=== PATIENT | male | born 1980 | race Caucasian/White ===

== ENCOUNTER 2020-08-27 06:40 | Outpatient (REF) | payer MEDICAID, SELFPAY | END 2020-08-27 06:41 | disposition home or self-care (01) | LOC: HO.LAB 06:40 | PROVIDERS: Visit Provider Internal Medicine | DX: Z20.828 Contact with and (suspected) exposure to other viral communicable diseases (principal) | CPT/HCPCS: 87635 ==

== ENCOUNTER 2020-10-29 10:10 | Outpatient (REF) | payer MEDICAID, SELFPAY | END 2020-10-29 10:11 | disposition home or self-care (01) | LOC: HO.LAB 10:10 | PROVIDERS: Visit Provider Internal Medicine | DX: Z20.828 Contact with and (suspected) exposure to other viral communicable diseases (principal) | CPT/HCPCS: C9803; U0003 ==

== ENCOUNTER 2021-07-23 11:06 | Outpatient (REF) | payer MEDICAID, SELFPAY ==
[2021-07-23 13:32] LABS: COVID-19 Test Negative (Negative)
== END 2021-07-23 11:07 | disposition home or self-care (01) ==
LOC: HO.LAB 11:06
PROVIDERS: Visit Provider Internal Medicine
DX: Z20.822 Contact with and (suspected) exposure to COVID-19 (principal)
CPT/HCPCS: 36415; 87635; C9803

== ENCOUNTER 2022-09-09 08:39 | Outpatient (REF) | payer MEDICAID, SELFPAY ==
[2022-09-09 09:19] LABS: COVID-19 Test Negative (Negative); IDNOW Serial# 16C4AD1C
== END 2022-09-09 08:40 | disposition home or self-care (01) ==
LOC: HO.LAB 08:39
PROVIDERS: Visit Provider Internal Medicine
DX: Z20.822 Contact with and (suspected) exposure to COVID-19 (principal)
CPT/HCPCS: 87635; C9803

== ENCOUNTER 2024-06-06 00:22 | Emergency (ER) | payer OTHER, SELFPAY ==
[2024-06-06 00:30] VITALS: BP 102/72; PULSE 69; RESP 18; TEMP 36.3; BMI 24.0
--- NOTE | 2024-06-06 01:09 | ED.BACK ---
HPI - Back Pain/Injury General Chief Complaint: Back Pain/Injury Stated Complaint: Back pain x 1 week/Work related Time Seen by Provider: 06/06/24 00:44 Source: patient Mode of arrival: ambulatory Limitations: no limitations History of Present Illness ED Provider: Dr. Zhen Madison HPI Narrative: 44-year-old male with history of sciatica who presents emergency department for evaluation of lower back pain with pain radiating down his right leg. 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 He states that while he was driving he developed pain in his lower back. He states that since that time he has had increased pain with pain radiating down his right leg. He states the pain radiates to his right buttocks and down the lateral and anterior aspect of his right thigh and stops at the knee. He states the pain is 9 out of 10 with movement and is 2 to 3/10 if he stays still and rests. The patient denied any numbness or weakness of the extremities. He denied any loss of bowel or bladder control. He has not had any systemic symptoms such as fever, chills, fatigue. Related Data Previous Rx's ?Medication ?Instructions ?Recorded cyclobenzaprine 10 mg tablet 10 mg PO TID PRN muscle pain or 06/06/24 spasm #20 tabs morphine 15 mg immediate release 15 mg PO Q6H PRN pain #10 tabs 06/06/24 tablet prednisone 20 mg tablet 60 mg (3 x 20 mg) PO DAILY 5 days 06/06/24 #15 tabs Allergies Allergy/AdvReac Type Severity Reaction Status Date / Time No Known Allergies Allergy Verified 06/06/24 00:34 Review of Systems Review of Systems: Yes all other systems are reviewed and are negative [facility] Past Medical History [facility] Narrative: Social history: 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 He denies tobacco and alcohol use. He states he occasionally smokes marijuana. Social History Social History Use of substances other than those prescribed or required for medical reasons: Yes Substance Use Type: Marijuana Substance Use Frequency: Occasionally Last Used Substance: Days (ago) Physical Exam Vital Signs: Vital Signs: Last Vital Signs Temp 97.3 F 06/06/24 00:30 Pulse 69 06/06/24 00:30 Resp 18 06/06/24 00:30 BP 102/72 06/06/24 00:30 O2 Del Method Room Air 06/06/24 00:30 BMI result Body Mass Index 24.0 Vital signs were normal Exam: General: Awake, alert in no distress Head: Normocephalic, atraumatic EENT: PERRL, Lids normal, sclera normal, conjunctiva normal, nose normal , ears normal, throat without erythema or exudates Neck: Supple, no adenopathy Lung: breath sounds symmetric, no wheezing, rales or rhonchi Chest: symmetric movement, nontender Heart: regular rate and rhythm, normal S1, S2 no murmurs or rubs Abdomen: soft, non-tender, nondistended, normal bowel sounds Back: Tenderness palpation of his right SI joint and right paraspinal muscles in the lumbar sacral area, he has a negative left straight leg raise and a positive right straight leg raise. Extremities: no deformities, moves all extremities symmetrically Neuro: Awake, alert, oriented, normal speech, cranial nerves intact, moves all extremities symmetrically, strength was 5/5 and symmetric Psych: Pleasant, cooperative Medications Administered Discontinued Medications Generic Name Dose Route Start Last Admin Trade Name Freq PRN Reason Stop Dose Admin Prednisone 60 mg 06/06/24 01:09 06/06/24 01:14 Prednisone 20 Mg Tablet PO 06/06/24 01:10 60 mg ONCE ONE Administration Medical Decision Making Medical Decision Making [facility] Narrative: 44-year-old male with history of sciatica who presents emergency department for evaluation of lower back pain with pain radiating down his right leg. Symptoms started 1 week prior while he was driving a work band which had a very hard seat. Patient's symptoms have gotten worse and is pain is 9/10 with movement in 2 to 3/10 if he rests. Patient does have pain that radiates to his right buttocks and his right lateral and anterior thigh to the knee with no weakness, loss of bowel or bladder control or systemic symptoms. Patient took Tylenol with no relief with the pain. Vital signs were normal. Physical examination did reveal Discharge Plan Discharge Clinical Impression: Lumbar radiculopathy Patient Disposition: Home, Self-Care Instructions: Lumbar Radiculopathy (ED) Additional Instructions: Your symptoms are consistent with inflammation of the lumbar nerve causing pain radiating down your right leg. Your symptoms started while your driving at work which makes this a work related injury. It is important that you call your employer tomorrow to see if they have an occupational health clinic for you to follow-up with. If they do not have an occupational health clinic then call our occupational health clinic, [facility] to get re-evaluated before you return to work. [facility] can also start a worker's compensation case number for you to help covering the cost of your medical treatment. Take prednisone 20 mg pills, 3 pills once a day for 5 days. This is a strong steroidal anti-inflammatory medication. While you ?are taking prednisone, do not take any NSAIDs (Motrin, Advil, ibuprofen, Aleve, naproxen). Take Tylenol (acetaminophen) 500 mg pills 2 pills every 6 hours as needed for pain. For pain not relieved by prednisone or Tylenol take morphine 15 mg pills, 1 pill every 6 hours as needed for pain. This medication will make you sleepy, do not drive or work while taking this medication. Morphine is a narcotic medication and can be addicting. If you are concerned about addiction you can ask the pharmacist for less pills or do not get this prescription filled. Take Flexeril (cyclobenzaprine) 10 mg pills, 1 pill every 6-8 hours as needed for pain or spasm. ?This medication will make you sleepy. ?Do not drive or work while taking this medication. Follow-up with an occupational health clinic in 2-3 days. Please return to the emergency department if your symptoms get worse or if you develop any symptoms that are concerning to you. Please see the work note Prescriptions: New cyclobenzaprine 10 mg tablet 10 mg PO TID PRN (Reason: muscle pain or spasm) Qty: 20 0RF prednisone 20 mg tablet 60 mg PO DAILY 5 Days Qty: 15 0RF morphine 15 mg tablet 15 mg PO Q6H PRN (Reason: pain) Qty: 10 0RF Rx Instructions: The patient may ask for partial fill; Partial Fill upon patient request. Referrals: [facility] [Provider Group] - 3 days (Lumbar radiculopathy x1 week, work related injury-secondary to hard seat while driving work van) Stand Alone Forms: Work/School Release Print Language: Malay
[2024-06-06] MEDS: predniSONE 20 MG TABLET 60 MG PO (01:14)
[2024-06-06 01:36] VITALS: BP 102/72; PULSE 69; RESP 16; TEMP 36.3
== END 2024-06-06 01:37 | disposition home or self-care (01) ==
PROVIDERS: Emergency Provider Emergency Medicine Emergency Medical Services
DX: M54.16 Radiculopathy, lumbar region (principal)
CPT/HCPCS: 99283

== ENCOUNTER 2024-09-05 18:11 | Emergency (ER) | payer MEDICAID, SELFPAY ==
--- NOTE | ~2024-09-05 | XR_ITS ---
EXAMINATION: XR CHEST CLINICAL INFORMATION: Cough. COMPARISON: None available. TECHNIQUE: 2 views of the chest were obtained. FINDINGS: The lungs are clear. The cardiomediastinal silhouette is normal in size. There is no pleural effusion or pneumothorax. No acute osseous abnormality. XR/XR chest 2V IMPRESSION: No acute cardiopulmonary findings. Electronically signed by: Omar Hogan MD 09/05/2024 08:35 PM EDT
[2024-09-05 18:35] VITALS: BP 116/71; PULSE 89; RESP 16; TEMP 36.4; O2SAT 98; BMI 31.9
--- NOTE | 2024-09-05 18:35 | ED_ITS ---
HPI - URI/Sore Throat General Chief Complaint: Upper Respiratory Symptoms Stated Complaint: URI Time Seen by Provider: 09/05/24 20:05 Source: patient, RN notes reviewed and old records reviewed Mode of arrival: ambulatory History of Present Illness ED Provider: Yen Valladares PA-C HPI Narrative: 44-year-old male with no significant past medical history presenting to the ED complaining of dry cough, congestion, sinus pressure, rhinorrhea, chills, sweats, subjective fever, myalgias, bilateral ear pain x 1 week. Admits girlfriend was sick with similar symptoms. Denies CP/SOB, travel. Related Data Previous Rx's ?Medication ?Instructions ?Recorded cyclobenzaprine 10 mg tablet 10 mg PO TID PRN muscle pain or 06/06/24 spasm #20 tabs morphine 15 mg immediate release 15 mg PO Q6H PRN pain #10 tabs 06/06/24 tablet prednisone 20 mg tablet 60 mg (3 x 20 mg) PO DAILY 5 days 06/06/24 #15 tabs benzonatate 100 mg capsule 100 mg PO TID PRN cough #14 caps 09/05/24 fluticasone propionate 50 2 spray intranasal DAILY #16 grams 09/05/24 mcg/actuation nasal spray,suspension (Flonase Allergy Relief) Allergies Allergy/AdvReac Type Severity Reaction Status Date / Time No Known Allergies Allergy Verified 09/05/24 18:36 Review of Systems Review of Systems: Yes all other systems are reviewed and are negative Constitutional: Constitutional: Reports as per [facility] Past Medical History Attestation statement: The following information was validated with the patient. Source: old records reviewed Social History Social History Substance Use Type: Marijuana Advance Directives: No Advance Directives Information Provided: No Do you have a plan to hurt others: No Plan Physical Exam Vital Signs: Vital Signs: Last Vital Signs Temp 97.5 F 09/05/24 18:35 Pulse 89 09/05/24 18:35 Resp 16 09/05/24 18:35 BP 116/71 09/05/24 18:35 Pulse Ox 98 09/05/24 18:35 O2 Del Method Room Air 09/05/24 18:35 BMI result Body Mass Index 31.9 Const: General: cooperative, healthy appearing and no acute distress Orientation/consciousness: patient oriented x3 Limitations: no limitations HEENT: Head: Yes normal to inspection and Yes atraumatic Ears: hearing grossly normal bilaterally, external ears normal, mastoids normal and external ear abnormal (+mild erythema/abrasion to R external auditory canal) no pain with movement of external ear General nose exam: Normal external nose present Face and sinus: Yes normal facial exam Mouth: Normal oral and palatal mucosa present and no drooling Throat: Yes posterior oropharynx normal, Yes tonsils normal, Yes uvula midline, No peritonsillar mass, No uvula laterally displaced and No uvular edema Eyes: General: appearance normal, both eyes and all related structures EOM: EOMs intact bilaterally Neck: Neck: Yes normal visual inspection and Yes no meningeal signs Resp: Effort & Inspection: normal respiratory effort, no respiratory distress and no stridor Auscultation: clear to auscultation bilaterally, no crackles, no rales, no rhonchi and no wheezes Cardio: Rate: regular rate Heart sounds: S1 normal heart sound present and S2 normal heart sound present GI: Inspection: Yes normal to inspection Palpation (GI): Soft to palpation, nontender, no guarding and not rigid Skin: Rashes: no rashes Wounds: no wounds Neuro: General: patient oriented x3, tone normal and no meningeal signs Cranial nerves: Yes CN's II-XII intact bilaterally Gait exam (Neuro): Normal gait present Extrem: General: Yes normal to inspection Course Course Course Narrative: This is a Rapid Medical Exam performed in triage by Yen Valladares PA-C. Full HPI, ROS and PE to be performed by primary ED provider. 44yo M presenting to the ED c/o congestion, cough, sinus pressure, chills, sweats, subj fever, myalgias, ear pain, rhinorrhea x 1 week. +sick contacts PE: + dry cough appreciated. Congested. Bilateral TMs WNL. Right external auditory canal with mild erythema. Lungs CTA. Plan: Viral testing, CXR -2012--influenza A positive 2042--XR chest 2V IMPRESSION: No acute cardiopulmonary findings. Results discussed with patient including worrisome signs and symptoms and strict return precautions, and when to return to the emergency department. They verbalized understanding and feel safe for discharge at this time. Medical Decision Making Medical Decision Making [facility] Narrative: 44-year-old male with no significant past medical history presenting to the ED complaining of dry cough, congestion, sinus pressure, rhinorrhea, chills, sweats, subjective fever, myalgias, bilateral ear pain x 1 week. On exam vital signs stable, NAD, nontoxic appearing, dry cough appreciated, lungs CTA, oropharynx WNL, bilateral TMs WNL. No evidence of acute otitis media or externa or mastoiditis. Concern for viral illness vs sinusitis vs pneumonia or bronchitis. Low suspicion for ACS/PE Plan: Viral testing, CXR Please refer to course for remaining clinical decision making, interpretation of labs/imaging results, and discussions with consultants and/or family members. Differential Diagnosis Differential Diagnoses: The differential diagnosis associated with the presentation includes As above Admission/Observation Consideration of admission/observation: Escalation of care including admission/observation considered Lab Data [facility] Lab Attestation statement: I reviewed the patient's lab results. Labs: Lab Results 09/05/24 Range/Units 19:19 Influenza Type A (PCR) POSITIVE A (Negative) Influenza Type B (PCR) NEGATIVE (Negative) RSV RNA Qual (PCR) NEGATIVE (Negative) SARS-CoV-2 RNA (RT-PCR) NEGATIVE (Negative) Independent Interpretation I performed an independent interpretation of an: Plain X-Ray Radiology Impression Discussion of test interpretation with radiology: I have reviewed the radiologist's reading. External Record Review External record reviewed: Inpatient record, Office record, Outpatient record, Prior outpatient labs, Prior outpatient radiology, Primary care record and Outside ED record Tests considered The following testing was considered but not selected: As above Prescription Management I considered prescription management with: Pain Medication, Antiviral and Antibiotic Discharge Plan Discharge Clinical Impression: Influenza A Patient Disposition: Home, Self-Care Instructions: Influenza (DC) Additional Instructions: You have the flu. Washing hands, covering her mouth, wear a mask. This is contagious. No antibiotics are indicated at this time Flonase as a nasal decongestant. Tessalon Perles for cough, take as needed Make sure you are staying hydrated. Drink plenty of fluids. Rest Alternate Tylenol and Motrin at home as needed for body aches and fever Follow-up with your doctor. If symptoms persist or worsen return to the emergency department *If you are a child & not tolerating liquid or urinating for more than 6 hours, or fevers are uncontrolled with medications at home, return to the emergency department* Prescriptions: New benzonatate 100 mg capsule 100 mg PO TID PRN (Reason: cough) Qty: 14 0RF fluticasone propionate [Flonase Allergy Relief] 50 mcg/actuation spray,suspension 2 spray intranasal DAILY Qty: 16 0RF Rx Instructions: administer into each nostril No Action cyclobenzaprine 10 mg tablet 10 mg PO TID PRN (Reason: muscle pain or spasm) Qty: 20 0RF prednisone 20 mg tablet 60 mg PO DAILY 5 Days Qty: 15 0RF morphine 15 mg tablet 15 mg PO Q6H PRN (Reason: pain) Qty: 10 0RF Rx Instructions: The patient may ask for partial fill; Partial Fill upon patient request. Referrals: Physician,None [Primary Care Provider] - Stand Alone Forms: Work/School Release Print Language: Turkish
[2024-09-05 19:59] LABS: Influenza A PCR POSITIVE (Negative); Influenza B PCR NEGATIVE (Negative); Resp Syncy Virus RNA Qual PCR NEGATIVE (Negative); SARS COV2 PCR INHOUSE NEGATIVE (Negative)
== END 2024-09-05 21:10 | disposition home or self-care (01) ==
PROVIDERS: Physician Assistant; Emergency Provider Internal Medicine
DX: J11.1 Influenza due to unidentified influenza virus with other respiratory manifestations (principal); R05.9 Cough, unspecified
CPT/HCPCS: 0241U; 71046; 99281; 99283

== ENCOUNTER 2025-03-08 15:12 | Emergency (ER) | payer SELFPAY ==
[2025-03-08 15:16] VITALS: BP 125/81; PULSE 100; RESP 98; TEMP 36.8; O2SAT 100; BMI 32.5
--- NOTE | 2025-03-08 15:18 | ED_ITS ---
HPI - Abdominal Pain General Chief Complaint: General Medical Stated Complaint: Headache, n/v 1 week Time Seen by Provider: 03/08/25 16:16 Source: patient Mode of arrival: ambulatory Limitations: no limitations History of Present Illness ED Provider: Lobo Carter PA-C HPI narrative: 44 yo male with no significant medical history presents to the ER for evaluation of nausea,weakness, headache, and 3 episodes of diarrhea over the last 1 week after eating 2 chicken sandwiches 1 week ago. He reports decreased PO intake over the last 1 week. He has been having a 1/10 headache, feeling weak and nauseated. He denies associated abdominal pain. No fever or chills. No one else at home is having similar symptoms. No focal weakness, numbness, tingling, vision changes. He feels dehydrated. MD elicited complaint: other (nausea, headache, weakness, decreased PO intake) Pertinent past history: none Onset (ago): week(s) (1) Location: none Exacerbating factors: nothing Relieving factors: nothing Associated symptoms: nausea Related Data Previous Rx's ?Medication ?Instructions ?Recorded cyclobenzaprine 10 mg tablet 10 mg PO TID PRN muscle pain or 06/06/24 spasm #20 tabs morphine 15 mg immediate release 15 mg PO Q6H PRN pain #10 tabs 06/06/24 tablet prednisone 20 mg tablet 60 mg (3 x 20 mg) PO DAILY 5 days 06/06/24 #15 tabs benzonatate 100 mg capsule 100 mg PO TID PRN cough #14 caps 09/05/24 fluticasone propionate 50 2 spray intranasal DAILY #16 grams 09/05/24 mcg/actuation nasal spray,suspension (Flonase Allergy Relief) ondansetron 4 mg disintegrating 4 mg PO Q8H PRN nausea and 03/08/25 tablet vomiting #7 tabs Allergies Allergy/AdvReac Type Severity Reaction Status Date / Time No Known Allergies Allergy Verified 03/08/25 15:17 Review of Systems Review of Systems Yes all other systems are reviewed and are negative [facility] Social History Social History Smoked in Last 30 Days: Yes Use of substances other than those prescribed or required for medical reasons: Yes Substance Use Type: Marijuana Advance Directives: No Advance Directives Information Provided: Yes Physical Exam ED Vital Signs: Vital Signs - 24 hr 03/08/25 15:16 03/08/25 16:40 Temperature 98.2 F Pulse Rate 100 56 Respiratory Rate 98 H 16 Blood Pressure 125/81 109/67 Pulse Oximetry 100 97 Oxygen Delivery Method Room Air Room Air BMI result Body Mass Index 32.5 Appearance: Alert. Oriented X3. No acute distress. Head: normocephalic, atraumatic. Eyes: Pupils equal, round and reactive to light. ENT: Pharynx normal. No tonsillar swelling or exudate. Moist mucus membranes Neck: Normal inspection. Neck supple. CVS: Normal heart rate and rhythm. Pulses normal. Respiratory: No respiratory distress. Breath sounds normal. Abdomen: Soft and nontender. +BS x4 Skin: Skin warm and dry. Normal skin color. Normal skin turgor. No rashes. Extremities: No lower extremity edema. No joint swelling. Neuro/psych: Oriented X 3. No motor deficit. No sensory deficit. CN II-XII intact. Normal speech and cognition. Course Course Course Narrative: This is a Rapid Medical Examination (RME) performed by Nichole Hathaway PA-C in triage. Full HPI, ROS, assessment and treatment plan per primary provider in the Main ED. 03/08/25 1518 BERTIN Nguyen Hx: 44 yo male here for eval of multiple episodes of diarrhea x1 week after eating [employer]. no abd pain. nausea without vomiting. admits to smoking marijuana every night. no recent abx or travel outside the country. no etoh use. feels dehydrated. PE/vitals: well appearing, vital stable Plan: labs, UA Medical Decision Making Medical Decision Making [facility] Narrative: 44 yo male presenting with vague symptoms of nausea, decreased PO inake, mild headache and weakness x1 week. VSS and exam is normal. he appears well. tolerating josette sanjay and soup at home. labs showing no leukocytosis, normal lytes and renal function. LFTs normal. given IVF, toradol, zofran. he is feeling ok. he is tolerating po stable for discharge home with supportive care Differential Diagnosis Differential Diagnoses: The differential diagnosis associated with the presentation includes gastroenteritis, viral syndrome, JEAN PAUL, dehydration Admission/Observation Consideration of admission/observation: Escalation of care including admission/observation considered Lab Data [facility] Lab Attestation statement: I reviewed the patient's lab results. no significant metabolic derangement 03/08/25 15:27 03/08/25 15:27 Labs: Lab Results 03/08/25 03/08/25 Range/Units 15:27 16:47 WBC 7.5 (4.8-10.8) X10*3/uL RBC 5.24 (4.60-5.80) X10*6/uL Hgb 15.7 (14.0-18.0) g/dl Hct 42.3 (42.0-52.0) % MCV 80.7 (80.0-98.0) fL MCH 30.0 (27.0-33.0) pg MCHC 37.1 H (31.0-36.0) g/dl RDW 12.0 (11.0-16.0) % Plt Count 228 (160-400) X10*3/uL MPV 9.3 L (9.4-12.4) fL Immature Gran % (Auto) 0.1 (0.0-0.4) % Neut % (Auto) 62.3 (45-73) % Lymph % (Auto) 27.5 (20-40) % [place] % (Auto) 7.5 (2-11) % Eos % (Auto) 2.1 (0-4) % Baso % (Auto) 0.5 (0-2) % Lymph # (Auto) 2.1 (1.2-4.9) X10*3/uL [place] # (Auto) 0.6 (0.1-1.2) X10*3/uL Eos # (Auto) 0.2 (0.0-0.4) X10*3/uL Baso # (Auto) 0.0 (0.0-0.2) X10*3/uL Abs Immat Gran (auto) 0.01 (0.00-0.03) X10*3/uL Absolute Neuts (auto) 4.6 (2.0-8.3) x10*3/uL Absolute Nucleated RBC 0.000 (0.0-0.012) X10*3/uL Nucleated RBC % (auto) 0.0 (0.0-0.2) /100WBC Sodium 140 (135-145) mmol/L Potassium 3.5 (3.3-5.1) mmol/L Chloride 107 (96-108) mmol/L Carbon Dioxide 25 (22-29) mmol/L Anion Gap 12 (12-20) BUN 9 (9-16) mg/dL Creatinine 0.86 (0.5-1.4) mg/dL Estim Creat Clear Calc 109.5 Estimated GFR > 60 Random Glucose 110 (60-115) mg/dL Calcium 9.3 (8.4-10.2) mg/dL Magnesium 2.3 (1.6-2.6) mg/dL Total Bilirubin 0.5 (0.0-1.0) mg/dL AST 27 (5-37) U/L ALT 32 (0-40) U/L Alkaline Phosphatase 103 (39-117) U/L Total Protein 7.4 (6.5-8.0) g/dL Albumin 4.5 (3.5-5.0) g/dL Lipase 15 (8-78) U/L Urine Color Yellow Urine Appearance Clear Urine pH 8.0 (5.0-9.0) Ur Specific Jackson 1.010 (1.005-1.025) Urine Protein Negative (Neg-Trace) mg/dL Urine Glucose (UA) Negative (Negative) mg/dL Urine Ketones Negative (Negative) mg/dL Urine Blood Negative (Negative) Urine Nitrite Negative (Negative) Ur Leukocyte Esterase Negative (Negative) Influenza Type A (PCR) NEGATIVE (Negative) Influenza Type B (PCR) NEGATIVE (Negative) RSV RNA Qual (PCR) NEGATIVE (Negative) SARS-CoV-2 RNA (RT-PCR) NEGATIVE (Negative) Tests considered The following testing was considered but not selected: considered CT head w/ complaints of dizziness and headache Prescription Management I considered prescription management with: Other (antiemetic) Medications Administered Generic Name Dose Route Start Last Admin Trade Name Freq PRN Reason Stop Dose Admin Lactated Ringer's 1,000 mls @ 999 mls/hr 03/08/25 16:30 03/08/25 16:38 Lr IV 03/08/25 17:30 999 mls/hr .[id number] SANDRA Administration Discontinued Medications Generic Name Dose Route Start Last Admin Trade Name Freq PRN Reason Stop Dose Admin Ketorolac Tromethamine 15 mg 03/08/25 16:17 03/08/25 16:29 Ketorolac Tromethamine 15 Mg/Ml Vial IVPUSH 03/08/25 16:18 15 mg ONCE ONE Administration Loperamide HCl 2 mg 03/08/25 16:17 03/08/25 16:50 Loperamide Hcl 2 Mg Capsule PO 03/08/25 16:18 2 mg ONCE ONE Administration Ondansetron HCl 4 mg 03/08/25 16:17 03/08/25 16:32 Ondansetron Hcl 4 Mg/2 Ml Vial IVPUSH 03/08/25 16:18 4 mg ONCE ONE Administration Critical Care Time Critical Care Time Critical Care Time: No Discharge Plan Discharge Clinical Impression: Gastroenteritis Patient Disposition: Home, Self-Care Instructions: Gastroenteritis (DC) Additional Instructions: You lab workup today was unremarkable. Recommend rest and plenty of oral hydration. Stick to a bland diet like soup and toast while you are not feeling well. Take the prescribed medication as needed for nausea. Recommend over the counter Pepto Bismol or Imodium for upset stomach and diarrhea. Follow up with your doctor as needed. If you develop new or worsening symptoms call 911 or come back to the ER for further evaluation. Prescriptions: New ondansetron 4 mg tablet,disintegrating 4 mg PO Q8H PRN (Reason: nausea and vomiting) Qty: 7 0RF No Action cyclobenzaprine 10 mg tablet 10 mg PO TID PRN (Reason: muscle pain or spasm) Qty: 20 0RF prednisone 20 mg tablet 60 mg PO DAILY 5 Days Qty: 15 0RF morphine 15 mg tablet 15 mg PO Q6H PRN (Reason: pain) Qty: 10 0RF Rx Instructions: The patient may ask for partial fill; Partial Fill upon patient request. benzonatate 100 mg capsule 100 mg PO TID PRN (Reason: cough) Qty: 14 0RF fluticasone propionate [Flonase Allergy Relief] 50 mcg/actuation spray,suspension 2 spray intranasal DAILY Qty: 16 0RF Rx Instructions: administer into each nostril Stand Alone Forms: Work/School Release Print Language: Portuguese
[2025-03-08 15:31] LABS: MANUAL DIFF FLAG NO
[2025-03-08 15:36] LABS: Basophils Percent Auto 0.5 % (0-2); Eosinophils Absolute Auto 0.2 X10*3/uL (0.0-0.4); Eosinophils Percent Auto 2.1 % (0-4); Hematocrit 42.3 % (42.0-52.0); Hemoglobin 15.7 g/dl (14.0-18.0); Imm Gran Abs Auto 0.01 X10*3/uL (0.00-0.03); Imm Gran Pct Auto 0.1 % (0.0-0.4); Lymphocytes Absolute Auto 2.1 X10*3/uL (1.2-4.9); Lymphocytes Percent Auto 27.5 % (20-40); Mean Corpuscular HGB Conc 37.1 g/dl (31.0-36.0); Mean Corpuscular Volume 80.7 fL (80.0-98.0); Mean Platelet Volume 9.3 fL (9.4-12.4); Monocytes Absolute Auto 0.6 X10*3/uL (0.1-1.2); Monocytes Percent Auto 7.5 % (2-11); Neutrophils Absolute Auto 4.6 x10*3/uL (2.0-8.3); Neutrophils Percent Auto 62.3 % (45-73); Platelet Count 228 X10*3/uL (160-400); Red Blood Count 5.24 X10*6/uL (4.60-5.80); White Blood Count 7.5 X10*3/uL (4.8-10.8)
[2025-03-08 15:55] LABS: Alanine Aminotransferase 32 U/L (0-40); Albumin Level 4.5 g/dL (3.5-5.0); Anion Gap 12 (12-20); Aspartate Amino Transferase 27 U/L (5-37); Bilirubin Total 0.5 mg/dL (0.0-1.0); Blood Urea Nitrogen 9 mg/dL (9-16); Calcium 9.3 mg/dL (8.4-10.2); Carbon Dioxide 25 mmol/L (22-29); Chloride 107 mmol/L (96-108); Creatinine Clr Calc Pharmacy 109.5; Estimated Glomerular Filt Rate > 60; Glucose Random 110 mg/dL (60-115); Lipase 15 U/L (8-78); Magnesium 2.3 mg/dL (1.6-2.6); Potassium 3.5 mmol/L (3.3-5.1); Sodium 140 mmol/L (135-145); Total Protein 7.4 g/dL (6.5-8.0)
[2025-03-08 16:03] LABS: Alkaline Phosphatase 103 U/L (39-117)
[2025-03-08 16:10] LABS: Influenza A PCR NEGATIVE (Negative); Influenza B PCR NEGATIVE (Negative); Resp Syncy Virus RNA Qual PCR NEGATIVE (Negative); SARS COV2 PCR INHOUSE NEGATIVE (Negative)
[2025-03-08] MEDS: Ketorolac Tromethamine 15 MG/ML VIAL IVPUSH (16:29)
[2025-03-08] MEDS: ondansetron HCL 4 MG/2 ML VIAL IVPUSH (16:32)
[2025-03-08] MEDS: Lactated Ringers 1,000 ML 999 ML IV (16:38)
[2025-03-08 16:40] VITALS: BP 109/67; PULSE 56; RESP 16; O2SAT 97
--- OUTSIDE RECORDS SUMMARY | 2025-03-08 16:45 | XMS_ITS | Clinical Summary ---
Author Organization [employer] Address [address] [place] [address] [place] [address] Care Team Providers Care Licensing Manager Name Role Phone Unavailable Primary Care Provider Unavailabl e Allergies No known active allergies Medications No known medications Active Problems No known active problems Encounters Date Type Department Care Team Description 12/14/2024 8:00 AM EST Office Visit [facility] [address] [place] [address] Deb Ryan, DDS 12/13/2024 Telephone [facility] [address] [place] [address] Deb Ryan, DDS 12/13/2024 Telephone [facility] [address] [place] [address] Deb Ryan, DDS from Last 3 Months Social History Tobacco Use Types Packs/Day Years Used Date Smoking Tobacco: Former Cigarettes Smokeless Tobacco: Never Tobacco Cessation:Counseling Given: Not Answered Alcohol Use Standard Drinks/Week Comments Never 0 (1 standard drink = 0.6 oz pur e alcohol) Sex and Gender Information Value Date Recorded Sex Assigned at Male 09/08/2022 10:20 AM EDT Legal Sex Male 10:20 AM EDT Gender Identity Male 12/05/2024 9:10 AM EST Sexual Orientation Choose not to disclose 2024 9:10 AM EST Last Filed Vital Signs Vital Sign Reading Time Taken Comments Blood Pressure 120/76 12/14/2024 8:05 AM EST Pulse 70 12/14/2024 8:05 AM EST Temperature - - Respiratory Rate - - Oxygen Saturation - - Inhaled Oxygen Concentration - - Weight - - Height - - Body Mass Index - - Plan of Treatment Health Maintenance Due Date Last Done Comments Dental Oral Exam 1981 Dental Prophylaxis 1981 Dental X-Ray: Full Mouth 1981 Depression Screening 1981 HIV Screening 1981 Lipid Panel 1981 SDOH Screening 1981 Alcohol/Substance Use Screening 1993 Family Planning (PISQ) 1996 Hepatitis C Screening 1999 DTaP/Tdap/Td Vaccines (1 - Tdap) 2000 Hepatitis B Vaccines (1 of 3 - 19+ 3-dose series) 2000 COVID-19 Vaccine (1 - 2023-2 5 season) 2024 Influenza Vaccine (#1) 2024 Dental X-Ray: Bitewings 12/06/2025 12/05/2024 Tobacco Screening 12/14/2025 12/14/2024 Zoster Vaccines (1 of 2) 2031 RSV Patients and Pa tients Aged 60 years or older (1 - 1-dose 75+ series) 2056 HIB Vaccines Aged Out No longer eligi ble based on patient's age to complete this topic HPV Vaccines Aged Out No longer eligi ble based on patient's age to complete this topic Hepatitis A Vaccines Aged Out No long er eligible based on patient's age to complete this topic IPV Vaccines Aged Out No longer eligi ble based on patient's age to complete this topic Meningococcal Vaccine Aged Out No jorgito tam eligible based on patient's age to complete this topic Pneumococcal Vaccine: Pediat rics (0 to 5 Years) and At-Risk Patients (6 to 49) Years) Aged Out No longer elig ible based on patient's age to complete this topic RSV under 20 months Aged Out No longe r eligible based on patient's age to complete this topic Rotavirus Vaccines Aged Out No longer eligible based on patient's age to complete this topic Procedures Procedure Name Priority Date/Time Associated Diagnosis Comments 31 EXTRACTION, ERUPTED TOOTH REQ REMOVAL OF BONE AND/OR SECTIONING OF TOOTH Routine 12/14/2024 8:00 AM EST BITEWING - SINGLE RADIOGRAPHIC IMAGE Routine 12/05/2024 9:30 AM EST from Last 3 Months or Most Recently Relevant to Health Maintenance
[2025-03-08] MEDS: Loperamide HCl 2 MG CAPSULE PO (16:50)
[2025-03-08 17:10] LABS: Appearance Urine Clear; Color Urine Yellow; Glucose Urine UA Negative (Negative); Leukocyte Esterase Urine Negative (Negative); Nitrite Urine Negative (Negative); Urine Blood Negative (Negative); Urine Ketones Negative (Negative); Urine Protein Negative (Neg-Trace)
[2025-03-08 17:26] VITALS: BP 109/67; PULSE 56; RESP 16; TEMP 36.6; O2SAT 97
== END 2025-03-08 17:31 | disposition home or self-care (01) ==
PROVIDERS: Physician Assistant Medical; Emergency Provider Emergency Medicine
DX: K52.9 Noninfective gastroenteritis and colitis, unspecified (principal); Z03.818 Encounter for observation for suspected exposure to other biological agents ruled out; R51.9 Headache, unspecified; R42 Dizziness and giddiness; Z79.899 Other long term (current) drug therapy
CPT/HCPCS: 0241U; 80053; 81003; 83690; 83735; 85025; 96374; 96375; 99284; J1885; J2405; J7120

== ENCOUNTER 2025-03-10 06:43 | Emergency (ER) | payer SELFPAY ==
--- NOTE | ~2025-03-10 | XR_ITS ---
CLINICAL HISTORY: SOB 1 view chest x-ray Comparison: 09/05/2024 Findings: The lungs are clear. Heart size is normal. No acute fracture. IMPRESSION: 1. No acute findings. This document has been electronically signed by: Jaspreet Lord MD on 03/10/2025 07:51:15
[2025-03-10 06:49] VITALS: BP 121/71; PULSE 66; RESP 18; TEMP 36.1; O2SAT 98; BMI 32.9
--- NOTE | 2025-03-10 06:52 | ECG_ITS ---
Test Reason : cp Blood Pressure : */* mmHG Vent. Rate : 59 BPM Atrial Rate : 59 BPM P-R Int : 128 ms QRS Dur : 82 ms QT Int : 398 ms P-R-T Axes : 5 33 37 degrees QTcB Int : 394 ms Sinus bradycardia Low voltage QRS Borderline ECG No previous ECGs available Referred By: Generic ED Physician Electronically Signed By: Gaetano Carr
--- NOTE | 2025-03-10 07:39 | ED.URI ---
HPI - URI/Sore Throat General Chief Complaint: Upper Respiratory Symptoms Stated Complaint: Scratchy Throat Etc Time Seen by Provider: 03/10/25 07:39 Source: patient and old records reviewed Mode of arrival: ambulatory Limitations: no limitations History of Present Illness ED Provider: TIESHA JUAREZ Narrative: 44 yo male no sig PMH here with c/o scratchy burning throat and chest burning since yesterday. He had a GI bug recently and last vomited > 2 days ago. Yesterday he rested a lot but did not notice a cough, fevers, sputum. At night he felt glass in his chest from top of throat down to center of chest. Nothing makes it worse. No n/v/d no dyspnea. No pleuritic component he has not had this before. MD elicited complaint: cough Onset (ago): day(s) (just this AM) Consistency: intermittent Severity: moderate Able to tolerate fluids by mouth: Yes Exacerbating factors: nothing Relieving factors: nothing Context: other Associated symptoms: sore throat Treatments prior to arrival: none Related Data Previous Rx's ?Medication ?Instructions ?Recorded cyclobenzaprine 10 mg tablet 10 mg PO TID PRN muscle pain or 06/06/24 spasm #20 tabs morphine 15 mg immediate release 15 mg PO Q6H PRN pain #10 tabs 06/06/24 tablet prednisone 20 mg tablet 60 mg (3 x 20 mg) PO DAILY 5 days 06/06/24 #15 tabs benzonatate 100 mg capsule 100 mg PO TID PRN cough #14 caps 09/05/24 fluticasone propionate 50 2 spray intranasal DAILY #16 grams 09/05/24 mcg/actuation nasal spray,suspension (Flonase Allergy Relief) famotidine 20 mg tablet (Pepcid) 40 mg (2 x 20 mg) PO DAILY 03/10/25 abdominal discomfort 14 days #28 tabs ondansetron 4 mg disintegrating 4 mg PO Q8H PRN nausea and 03/10/25 tablet vomiting #20 tabs sucralfate 100 mg/mL oral 10 ml PO BID 7 days #140 mL 03/10/25 suspension (Carafate) Allergies Allergy/AdvReac Type Severity Reaction Status Date / Time No Known Allergies Allergy Verified 03/10/25 06:51 Review of Systems Review of Systems: Constitutional : No Fever, No Chills, No Fatigue ENT/Mouth : pos sore throat, No Rhinorrhea Eyes: No Eye Pain, No Swelling, No Redness Cardiovascular : pos Chest Pain, No SOB, No Dyspnea on Exertion Respiratory : No Cough, No Sputum Gastrointestinal : No Nausea, No Vomiting, No Diarrhea, No abdominal Pain Genitourinary : No Dysuria, No Urinary Frequency, No Hematuria, Musculoskeletal : No joint pain, No Myalgias, No Joint Swelling Skin : No Skin Lesions, No rash Neuro : No Weakness, No Numbness, No Dizziness, no Headache All other systems reviewed and are negative [facility] Past Medical History Attestation statement: The following information was validated with the patient. Source: old records reviewed Medical History (Updated 03/10/25 @ 08:13 by Mojgan Maza DO) No pertinent past medical history Social History Social History (Updated 03/10/25 @ 07:57 by Mojgan Maza DO) Patient Tobacco Use Status: Never used Tobacco Substance Use Type: Marijuana Advance Directives: No Advance Directives Information Provided: Yes Do you have a plan to hurt others: No Plan Physical Exam Vital Signs: Vital Signs: Last Vital Signs Temp 97.0 F 03/10/25 06:49 Pulse 66 03/10/25 06:49 Resp 18 03/10/25 06:49 BP 121/71 03/10/25 06:49 Pulse Ox 98 03/10/25 06:49 O2 Del Method Room Air 03/10/25 06:49 BMI result Body Mass Index 32.9 Appearance: Alert. Oriented X3. No acute distress. Eyes: Pupils equal, round and reactive to light. ENT: Pharynx normal. no thrush, erythema, exudates, swelling noted, normal voice Neck: Normal inspection. Neck supple. CVS: Normal heart rate and rhythm. Pulses normal. Respiratory: No respiratory distress. Breath sounds dry cough - some end exp prolongation and cough after deep breaths Abdomen: Soft and nontender. Skin: Skin warm and dry. Normal skin color. Normal skin turgor. Extremities: No lower extremity edema. No calf ttp Neuro: Oriented X 3. No motor deficit. No sensory deficit. CN2-12 intact Medications Administered Discontinued Medications Generic Name Dose Route Start Last Admin Trade Name Freq PRN Reason Stop Dose Admin Al Hydroxide/Mg Hydroxide 15 ml 03/10/25 07:49 03/10/25 08:25 Magnesium Hydrox/Alum Hydrox 30 Ml Oral.Susp PO 03/10/25 07:50 15 ml ONCE ONE Administration Albuterol Sulfate 2 puff 03/10/25 07:49 03/10/25 08:25 Albuterol Sulfate 90 Mcg 8 Gm Inhaler INHALE 03/10/25 07:50 2 puff ONCE ONE Administration Lidocaine HCl 15 ml 03/10/25 07:49 03/10/25 08:25 Lidocaine Hcl Viscous 2 % 15 Ml Solution MUCOUS MEM 03/10/25 07:50 15 ml ONCE ONE Administration Medical Decision Making Medical Decision Making [facility] Narrative: 44 yo male with no sig PMH here with c/o glass in throat in chest did just have GI bug - at this time EKG, CXR and viral panel ordered. He is PERC negative. He is not toxic and I see no abnormality on physical exam. At this time his symptoms seem more consistent for GI issue such as esophagitis, thrush, spasm, GERD, gastritis. He has no known risk factors for ACS/VTE Differential Diagnosis Differential Diagnoses: The differential diagnosis associated with the presentation includes esophagitis, thrush, pneumonia, viral illness no signs of pericarditis he is PERC negative pain does not radiate and it is burning doubt dissection Admission/Observation Consideration of admission/observation: Escalation of care including admission/observation considered improved feels better stable for DC Lab Data [facility] Lab Attestation statement: I reviewed the patient's lab results. Labs: Lab Results 03/10/25 Range/Units 06:59 Influenza Type A (PCR) NEGATIVE (Negative) Influenza Type B (PCR) NEGATIVE (Negative) RSV RNA Qual (PCR) NEGATIVE (Negative) SARS-CoV-2 RNA (RT-PCR) NEGATIVE (Negative) Independent Interpretation I performed an independent interpretation of an: EKG and Plain X-Ray (normal ) Interpretation: Rate: 59 Rhythm: sinus bradycardia [place]: normal Normal P waves. Normal MARTHA. Normal QRS complex. ST T wave : inverted t waves V1, no ALISON qTC: 394 prior studies: normal The study has been interpreted contemporaneously by me. . Radiology Impression Discussion of test interpretation with radiology: I have reviewed the radiologist's reading. External Record Review External record reviewed: Outpatient record Prescription Management I considered prescription management with: Other Discharge Plan Discharge Clinical Impression: Esophagitis Patient Disposition: Home, Self-Care Instructions: Esophagitis (ED) Additional Instructions: EKG and chest xray normal at this time normal viral panel including COVID, FLU, RSV I want you to take these new medications for the next 14 days - pills and then the liquid for 7 days avoid motrin but tylenol is okay return for worsening pain, fevers, unable to eat or drink, or any other concerns. can take albuterol inhaler 2 puffs every 4 hours for dry cough/shortness of breath. Prescriptions: New sucralfate [Carafate] 100 mg/mL suspension 10 ml PO BID 7 Days Qty: 140 0RF famotidine [Pepcid] 20 mg tablet 40 mg PO DAILY 14 Days Qty: 28 0RF ondansetron 4 mg tablet,disintegrating 4 mg PO Q8H PRN (Reason: nausea and vomiting) Qty: 20 0RF Discontinued ondansetron 4 mg tablet,disintegrating 4 mg PO Q8H PRN (Reason: nausea and vomiting) Qty: 7 0RF No Action cyclobenzaprine 10 mg tablet 10 mg PO TID PRN (Reason: muscle pain or spasm) Qty: 20 0RF prednisone 20 mg tablet 60 mg PO DAILY 5 Days Qty: 15 0RF morphine 15 mg tablet 15 mg PO Q6H PRN (Reason: pain) Qty: 10 0RF Rx Instructions: The patient may ask for partial fill; Partial Fill upon patient request. benzonatate 100 mg capsule 100 mg PO TID PRN (Reason: cough) Qty: 14 0RF fluticasone propionate [Flonase Allergy Relief] 50 mcg/actuation spray,suspension 2 spray intranasal DAILY Qty: 16 0RF Rx Instructions: administer into each nostril Stand Alone Forms: Work/School Release Print Language: Indian
[2025-03-10 07:42] LABS: Influenza A PCR NEGATIVE (Negative); Influenza B PCR NEGATIVE (Negative); Resp Syncy Virus RNA Qual PCR NEGATIVE (Negative); SARS COV2 PCR INHOUSE NEGATIVE (Negative)
--- OUTSIDE RECORDS SUMMARY | 2025-03-10 07:57 | XMS_ITS | Clinical Summary ---
Author Organization [employer] Address [address] [place] [address] [place] [address] Care Team Providers Care Inventory Associate And Driver Name Role Phone Unavailable Primary Care Provider Unavailabl e Allergies No known active allergies Medications No known medications Active Problems No known active problems Encounters Date Type Department Care Team Description 12/14/2024 8:00 AM EST Office Visit [facility] [address] [place] [address] Deb Ryan, DDS 12/13/2024 Telephone [facility] [address] [place] [address] Deb Ryan, DDS 12/13/2024 Telephone [facility] [address] [place] [address] Deb Ryan, DDS from Last 3 Months [...]
[2025-03-10] MEDS: Albuterol Sulfate 90 MCG 8 GM INHALER 2 PUFF INHALE (08:25)
[2025-03-10] MEDS: Magnesium Hydrox/Alum Hydrox 30 ML ORAL.SUSP 15 ML PO (08:25)
[2025-03-10] MEDS: Lidocaine HCl Viscous 2 % 15 ML SOLUTION MUCOUS MEM (08:25)
[2025-03-10 09:00] VITALS: BP 125/76; PULSE 65; RESP 18; TEMP 36.1; O2SAT 98
[2025-03-10 09:23] VITALS: BP 125/76; PULSE 65; RESP 18; TEMP 36.1; O2SAT 98
== END 2025-03-10 09:24 | disposition home or self-care (01) ==
PROVIDERS: Emergency Provider Emergency Medicine
DX: K20.90 Esophagitis, unspecified without bleeding (principal); R07.9 Chest pain, unspecified; J02.9 Acute pharyngitis, unspecified; R50.9 Fever, unspecified; R05.9 Cough, unspecified; Z03.818 Encounter for observation for suspected exposure to other biological agents ruled out
CPT/HCPCS: 0241U; 71045; 93005; 99284

== ENCOUNTER → 2025-03-10 06:52 | Outpatient (BNV) | payer SELFPAY | PROVIDERS: Emergency Provider Emergency Medicine; Visit Provider Internal Medicine Cardiovascular Disease | DX: R00.1 Bradycardia, unspecified (principal) | CPT/HCPCS: 93010 ==

== ENCOUNTER → 2025-03-10 07:25 | Outpatient (BNV) | payer SELFPAY | PROVIDERS: Emergency Provider Emergency Medicine; Visit Provider Specialist | DX: R06.02 Shortness of breath (principal) | CPT/HCPCS: 71045 ==

== ENCOUNTER 2025-10-09 07:57 | Emergency (ER) | payer SELFPAY ==
--- NOTE | ~2025-10-09 | XR_ITS ---
EXAMINATION: XR CHEST CLINICAL INFORMATION: cough COMPARISON: March 2025. TECHNIQUE: PA and lateral views FINDINGS: No consolidation, pleural effusion or pneumothorax. Cardiomediastinal silhouette size is normal. No hyperinflation. Osseous structures are intact. Mild endplate sclerosis and 20% volume loss in the vertebral bodies of the mid thoracic spine. XR/XR chest 2V IMPRESSION: No acute airspace disease. Mild spondylosis, mid thoracic spine. Electronically signed by: Isaias Huerta MD 10/09/2025 08:16 AM [facility]
[2025-10-09 07:59] VITALS: BP 115/56; PULSE 85; RESP 18; TEMP 36.6; O2SAT 98; BMI 26.6
[2025-10-09 08:54] LABS: IDNOW Serial# 58CA691E; Strep A Nucleic Acid Negative (Negative)
--- NOTE | 2025-10-09 09:16 | ED.URI ---
HPI - URI/Sore Throat General Chief Complaint: Upper Respiratory Symptoms Stated Complaint: Sick for a month, sharp pain w/ coughing, sob Time Seen by Provider: 10/09/25 09:09 Source: patient and old records reviewed Mode of arrival: ambulatory Limitations: no limitations History of Present Illness ED Provider: TIESHA JUAREZ Narrative: 45-year-old male who occasionally smokes marijuana reports possible history of asthma as a child as well as history of ear infections as an adult. He comes in with upper respiratory symptoms as well as a cough question in his chest for 1 month. 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 He states it hurts when he has a deep cough. He has no other medical history or issues with his heart that is reported. He states his throat is sore, he feels hot he feels cold his ears hurt. He has not been on any antibiotics for this in the last month. MD elicited complaint: fever, cough, sore throat and other Pertinent past history: other Onset (ago): month(s) (1) Consistency: intermittent Severity: moderate Exacerbating factors: other (He has chest wall pain with cough) Relieving factors: nothing Context: other Associated symptoms: fever, chills, headache, nasal congestion, sore throat, cough, chest pain and shortness of breath Treatments prior to arrival: none Related Data Previous Rx's ?Medication ?Instructions ?Recorded cyclobenzaprine 10 mg tablet 10 mg PO TID PRN muscle pain or 06/06/24 spasm #20 tabs morphine 15 mg immediate release 15 mg PO Q6H PRN pain #10 tabs 06/06/24 tablet prednisone 20 mg tablet 60 mg (3 x 20 mg) PO DAILY 5 days 06/06/24 #15 tabs benzonatate 100 mg capsule 100 mg PO TID PRN cough #14 caps 09/05/24 fluticasone propionate 50 2 spray intranasal DAILY #16 grams 09/05/24 mcg/actuation nasal spray,suspension (Flonase Allergy Relief) famotidine 20 mg tablet (Pepcid) 40 mg (2 x 20 mg) PO DAILY 03/10/25 abdominal discomfort 14 days #28 tabs ondansetron 4 mg disintegrating 4 mg PO Q8H PRN nausea and 03/10/25 tablet vomiting #20 tabs sucralfate 100 mg/mL oral 10 ml PO BID 7 days #140 mL 03/10/25 suspension (Carafate) amoxicillin 875 mg-potassium 1 tab PO BID #14 tabs 10/09/25 clavulanate 125 mg tablet Allergies Allergy/AdvReac Type Severity Reaction Status Date / Time No Known Allergies Allergy Verified 10/09/25 08:01 Review of Systems Review of Systems: Constitutional : positive Fever, positive Chills, positive fatigue, positive Malaise ENT/Mouth : positive sore throat, positive runny nose Eyes: No Discharge, positive ear pain Cardiovascular : pos Chest Pain Respiratory :pos Cough Gastrointestinal : No Nausea, No Vomiting, No Diarrhea Genitourinary : No Dysuria, No Urinary Frequency Musculoskeletal : positive Myalgia Skin : No rash Neuro : No Headache Yes all other systems are reviewed and are negative [facility] Past Medical History Attestation statement: The following information was validated with the patient. Source: old records reviewed Medical History No pertinent past medical history Social History Social History Patient Tobacco Use Status: Never used Tobacco Substance Use Type: Marijuana Advance Directives: No Advance Directives Information Provided: No Do you have a plan to hurt others: No Plan Physical Exam Vital Signs: Vital Signs: Last Vital Signs Temp 98 F 10/09/25 10:28 Pulse 85 10/09/25 10:28 Resp 18 10/09/25 10:28 BP 115/56 L 10/09/25 10:28 Pulse Ox 98 10/09/25 10:28 O2 Del Method Room Air 10/09/25 10:28 BMI result Body Mass Index 26.6 Appearance: Alert. Oriented X3. No acute distress. Eyes: Pupils equal, round and reactive to light. ENT: Pharynx no exudates very mild erythema, tonsils are not swollen and uvula is midline. Bilateral ears show erythema of the TM as well as purulent effusion, as well as bulging, the canal is minimally swollen on the left side, there is no perforation Neck: Normal inspection. Neck supple. CVS: Normal heart rate and rhythm. Pulses normal. Respiratory: No respiratory distress. Breath sounds normal. Abdomen: Soft and nontender. Skin: Skin warm and dry. Normal skin color. Extremities: No lower extremity edema. Neuro: Oriented X 3. No motor deficit. No sensory deficit. Medical Decision Making Medical Decision Making [facility] Narrative: 45-year-old male with no significant past medical history other than reports history of URI and needing inhaler as well as recurrent otitis media in adulthood. He comes in with upper respiratory symptoms x1 month now with worsening ear pain and sore throat. He is not toxic, he is well-appearing, there is no posterior ear pain or swelling on exam. I am going to obtain a chest x-ray, strep swab, viral panel, he will be started on oral Augmentin for bilateral otitis media. He is reliable he was given reasons to return. Differential Diagnosis Differential Diagnoses: The differential diagnosis associated with the presentation includes Viral syndrome, pneumonia, bronchitis, otitis media Admission/Observation Consideration of admission/observation: Escalation of care including admission/observation considered Patient is well-appearing with clear lungs and normal O2 sat of 98% at this time he can be discharged home with oral therapy for bilateral otitis media, there are no signs of deeper space infection Lab Data [facility] Lab Attestation statement: I reviewed the patient's lab results. Labs: Lab Results 10/09/25 Range/Units 08:32 Influenza Type A (PCR) NEGATIVE (Negative) Influenza Type B (PCR) NEGATIVE (Negative) RSV RNA Qual (PCR) NEGATIVE (Negative) SARS-CoV-2 RNA (RT-PCR) NEGATIVE (Negative) S. pyogenes GrpA ANNETTE Negative (Negative) Independent Interpretation I performed an independent interpretation of an: Plain X-Ray (No consolidation) Radiology Impression Discussion of test interpretation with radiology: I have reviewed the radiologist's reading. External Record Review External record reviewed: Outpatient record Prescription Management I considered prescription management with: Antibiotic Discharge Plan Discharge Clinical Impression: Otitis media Qualifiers: Otitis media type: suppurative Chronicity: acute Laterality: bilateral Recurrence: non-recurrent Spontaneous tympanic membrane rupture: without spontaneous rupture Qualified Code(s): H66.003 - Acute suppurative otitis media without spontaneous rupture of ear drum, bilateral Upper respiratory infection Qualifiers: URI type: unspecified URI Qualified Code(s): J06.9 - Acute upper respiratory infection, unspecified Patient Disposition: Home, Self-Care Instructions: Ear Infection (ED), Upper Respiratory Infection (ED) Additional Instructions: Your chest x-ray did not show any acute pneumonia, your strep swab was negative. At this time both of your ears are infected I am going to start you on antibiotics for the next 7 days, please finish all antibiotics. I will call you at home if your COVID, flu, RSV are positive. If you do not here for me by the end of the day that means your swabs were negative. Return for any worsening symptoms or concerns, rest and stay hydrated, alternate Tylenol and Motrin as needed for pain. On amoxicillin-clavulanate, softer bowel movements are to be expected. Call your provider if you move your bowels more than 4 times a day, your bowel movements are almost all liquid, or you get a rash.? Prescriptions: New amoxicillin-pot clavulanate 875-125 mg tablet 1 tab PO BID Qty: 14 0RF No Action cyclobenzaprine 10 mg tablet 10 mg PO TID PRN (Reason: muscle pain or spasm) Qty: 20 0RF prednisone 20 mg tablet 60 mg PO DAILY 5 Days Qty: 15 0RF morphine 15 mg tablet 15 mg PO Q6H PRN (Reason: pain) Qty: 10 0RF Rx Instructions: The patient may ask for partial fill; Partial Fill upon patient request. benzonatate 100 mg capsule 100 mg PO TID PRN (Reason: cough) Qty: 14 0RF fluticasone propionate [Flonase Allergy Relief] 50 mcg/actuation spray,suspension 2 spray intranasal DAILY Qty: 16 0RF Rx Instructions: administer into each nostril sucralfate [Carafate] 100 mg/mL suspension 10 ml PO BID 7 Days Qty: 140 0RF famotidine [Pepcid] 20 mg tablet 40 mg PO DAILY 14 Days Qty: 28 0RF ondansetron 4 mg tablet,disintegrating 4 mg PO Q8H PRN (Reason: nausea and vomiting) Qty: 20 0RF Stand Alone Forms: Work/School Release Interventions: ED Discharge Assessment Last Done: 10/09/25 10:28 Discharge Date/Time: 10/09/25 10:00 Print Language: Citizen [place]
--- OUTSIDE RECORDS SUMMARY | 2025-10-09 09:21 | XMS_ITS | Clinical Summary ---
Author Organization [employer] Address [address] [place] [address] Care Team Providers Care Product Demonstrator Name Role Phone Unavailable Primary Care Provider Unavailabl e Allergies No known active allergies Medications No known medications Active Problems No known active problems Social History Tobacco Use Types Packs/Day Years [...] 1981 Lipid Panel 1981 SDOH Screening 1981 Disability Screening 1981 Alcohol/Substance Use Screening 1993 Family Planning (PISQ) 1996 HPV Vaccines (1 - Male 3-dos e series) 1996 Hepatitis C Screening 1999 DTaP/Tdap/Td Vaccines (1 - Tdap) 2000 Hepatitis B Vaccines (1 of 3 - 19+ 3-dose series) 2000 COVID-19 Vaccine ( - 2024-2 6 season) 2025 Influenza Vaccine (#1) 2025 Dental X-Ray: Bitewings 12/06/2025 12/05/2024 Tobacco Screening [...] patient's age to complete this topic Meningococcal B Vaccine Aged Out No l onger eligible based on patient's age to complete this topic Meningococcal Vaccine Aged Out No jorgito tam eligible based on patient's age to complete this topic Pneumococcal Vaccine: Pediat rics (0 to 5 Years) and At-Risk Patients (6 to 49) Years Aged Out No longer eligi ble based on patient's age to complete this topic RSV under 20 months Aged Out No longe r eligible based on patient's age to complete this topic Rotavirus Vaccines Aged Out No longer eligible based on patient's age to complete this topic Procedures Procedure Name Priority Date/Time Associated Diagnosis Comments BITEWING - SINGLE RADIOGRAPHIC IMAGE Routine 12/05/2024 9:30 AM EST from Last 3 Months or Most Recently Relevant to Health Maintenance
[2025-10-09 10:00] LABS: Resp Syncy Virus RNA Qual PCR NEGATIVE (Negative); SARS COV2 PCR INHOUSE NEGATIVE (Negative)
[2025-10-09 10:28] VITALS: BP 115/56; PULSE 85; RESP 18; TEMP 36.6; O2SAT 98
== END 2025-10-09 10:00 | disposition home or self-care (01) ==
PROVIDERS: Emergency Provider Emergency Medicine
DX: H66.003 Acute suppurative otitis media without spontaneous rupture of ear drum, bilateral (principal); J06.9 Acute upper respiratory infection, unspecified
CPT/HCPCS: 71046; 87637; 87651; 99282; 99283

== ENCOUNTER → 2025-10-09 08:02 | Outpatient (BNV) | payer SELFPAY | PROVIDERS: Visit Provider Radiology Diagnostic Radiology | DX: R05.9 Cough, unspecified (principal); M47.814 Spondylosis without myelopathy or radiculopathy, thoracic region | CPT/HCPCS: 71046 ==